=== PATIENT | male | born 1990 | race Caucasian/White ===

== ENCOUNTER 2018-02-08 16:18 | Emergency (ER) | payer OTHER ==
--- NOTE | 2018-02-08 16:40 | EDM.PDOC ---
ED HPI GENERAL MEDICAL PROBLEM - General Chief Complaint: Genitourinary Problem Stated Complaint: Dysuria Time Seen by Provider: 02/08/18 16:32 Source of Information: Reports: Patient, RN, RN Notes Reviewed History Limitations: Reports: No Limitations - History of Present Illness INITIAL COMMENTS - FREE TEXT/NARRATIVE: Patient presents to the ED at [facility] complaining of dysuria that started a couple weeks ago. He states his symptoms have progressively gotten worse. He denies any hematuria. No foul odor to urine. No mucous. No risk for STD. No fevers or chills. No abdominal or pelvic pain. Patient has a history of testicular CA which was treatment is chemo. Onset: Gradual Onset Date: 01/25/18 - Related Data Allergies Allergy/AdvReac Type Severity Reaction Status Date / Time amoxicillin [From Augmentin] Allergy Cannot Verified 02/08/18 16:37 Remember clavulanic acid Allergy Cannot Verified 02/08/18 16:37 [From Augmentin] Remember Home Meds: Home Meds Nitrofurantoin Monohyd/M-Cryst [Macrobid 100 mg Capsule] 1 cap PO BID 7 Days # 14 capsule 02/08/18 [Rx] ED ROS GENERAL - Review of Systems Review Of Systems: See Below Constitutional: Denies: Fever, Chills, Weakness Respiratory: Denies: Shortness of Breath, Cough Cardiovascular: Denies: Chest Pain, Palpitations GI/Abdominal: Denies: Abdominal Pain, Nausea, Vomiting : Reports: Dysuria. Denies: Frequency, Hematuria, Urgency Skin: Reports: No Symptoms Neurological: Reports: No Symptoms ED EXAM, RENAL/ - Physical Exam Exam: See Below Exam Limited By: No Limitations General Appearance: Alert, No Apparent Distress Respiratory/Chest: No Respiratory Distress, Lungs Clear, Normal Breath Sounds Cardiovascular: Normal Peripheral Pulses, Regular Rate, Rhythm GI/Abdominal: Normal Bowel Sounds, Soft, Non-Tender (Male) Exam: Deferred Neurological: Alert, Oriented Skin Exam: Warm, Dry, Intact, Normal Color Course - Vital Signs Last Recorded V/S: Last Vital Signs Temp 36.9 C 02/08/18 16:20 Pulse 60 02/08/18 16:20 Resp 16 02/08/18 16:20 BP 114/48 L 02/08/18 16:20 Pulse Ox 98 02/08/18 16:20 - Orders/Labs/Meds Orders: Active Orders 24 hr Category Date Time Status UA W/MICROSCOPIC [URIN] Stat Lab 02/08/18 16:25 Ordered Labs: Laboratory Tests 02/08/18 Range/Units 16:25 Urine Color Yellow (YELLOW) Urine Appearance Slightly cloudy H (CLEAR) Urine pH 6.5 (5.0-8.0) Ur Specific [place] 1.025 Urine Protein 30 H (NEGATIVE) mg/dL Urine Glucose (UA) Negative (NEGATIVE) mg/dL Urine Ketones Negative (NEGATIVE) mg/dL Urine Occult Blood Negative (NEGATIVE) Urine Nitrite Negative (NEGATIVE) Urine Bilirubin Negative (NEGATIVE) Urine Urobilinogen 0.2 (0.2) EU/dL Ur Leukocyte Esterase Small H (NEGATIVE) Urine RBC 0-5 (NOT SEEN) /HPF Urine WBC 10-20 H (NOT SEEN) /HPF Ur Squamous Epith Cells Rare (NEGATIVE) /HPF Urine Bacteria Rare (NEGATIVE) /HPF Urine Mucus Rare H (NEGATIVE) /LPF Departure - Departure Time of Disposition: 16:54 Disposition: Home, Self-Care 01 Condition: Good Clinical Impression: Acute cystitis without hematuria - Discharge Information Prescriptions: Nitrofurantoin Monohyd/M-Cryst [Macrobid 100 mg Capsule] 1 cap PO BID 7 Days # 14 capsule Instructions: Urinary Tract Infection, Adult, Nitrofurantoin tablets or capsules Forms: ED Department Discharge Additional Instructions: 1. Stay well hydrated and rest 2. Take medication for the full coarse, even if you are feeling better 3. No sexual intercourse while on antibiotics 4. LOTS of water 5. Call with any questions/concerns - Problem List Review Problem List Initiated/Reviewed/Updated: Yes - My Orders Last 24 Hours: My Active Orders 02/08/18 16:25 UA W/MICROSCOPIC [URIN] Stat - Assessment/Plan Last 24 Hours: My Active Orders 02/08/18 16:25 UA W/MICROSCOPIC [URIN] Stat Assessment:: UTI without hematuria Plan: Start Macrobid BID 7 days.
== END 2018-02-08 17:05 | disposition home or self-care (01) ==
LOC: VM.ED 16:18
DX: N30.90 Cystitis, unspecified without hematuria (principal); Z88.1 Allergy status to other antibiotic agents; Z88.8 Allergy status to other drugs, medicaments and biological substances
CPT/HCPCS: 81001; 99283